=== PATIENT | male | born 1970 | race Caucasian/White ===

== ENCOUNTER → 2021-01-23 03:03 | Outpatient (CLI) | payer OTHER, SELFPAY ==
[2021-01-23 19:14] LABS: SARS-CoV-2 RNA PCR Negative
== END ==
PROVIDERS: PCP Family Medicine; Visit Provider Physician Assistant
DX: Z20.822 Contact with and (suspected) exposure to COVID-19 (principal)
CPT/HCPCS: C9803; U0003; U0005

== ENCOUNTER 2024-02-21 20:42 | Emergency (ER) | payer OTHER, SELFPAY | END 2024-02-21 21:24 | disposition left against medical advice (07) | PROVIDERS: PCP Family Medicine | DX: Z53.21 Procedure and treatment not carried out due to patient leaving prior to being seen by health care provider (principal) | CPT/HCPCS: 99199 ==